=== PATIENT | female | born 1960 | race Caucasian/White ===

== ENCOUNTER 2017-11-04 17:26 | Emergency (ER) | payer BC ==
[2017-11-04] MEDS ORDERED: 0.9 % SODIUM CHLORIDE 1,000 ML BAG IV ONE (17:59)
--- NOTE | 2017-11-04 18:04 | Emergency Department Record ---
History of Present Illness - General Chief Complaint: Hypertension Stated Complaint: HIGH BLOOD PRESSURE/ELEV HEARTRATE Time Seen by Provider: 11/04/17 17:58 Source: Patient Mode of Arrival: Ambulatory Limitations: No limitations - History of Present Illness Initial Comments: 57 yo female presents with a feeling of heart palpitations and elevated blood pressure. This [place] the [place] The onset was 3 hours ago. She was sitting in the dressing room with her daughter. She felt her heart rate "rev" up. No chest pain or syncope. She reports she has had this before and saw a benzene still utility operator for tachycardia/palpitations. The first episode was many years ago and occurs about one or twice a year. She had been on medication many years ago. She has not taken medication for many years or seen a benzene still utility operator. She is unsure of the name of her original diagnosis. No other recent changes in her health. Normally HR is 60 per the patient. EMS BP was 190/. MD Complaint: Lightheadedness, Other Onset/Timin -: Hour(s) Timing: Unsure Description: Other History of Same: Yes History of Trauma: No Severity: Mild Improves With: Nothing Worsens With: Nothing - [place] Coma Scale Eye Response: (4) Open spontaneously Motor Response: (6) Obeys commands Verbal Response: (5) Oriented [place] Total: 15 - Related Data Home Medications Medication Instructions Recorded Confirmed Last Taken No Home Med [NO HOME MEDS] 11/04/17 11/04/17 Unknown Allergies Allergy/AdvReac Type Severity Reaction Status Date / Time codeine Allergy VOMITING Verified 11/04/17 17:34 Travel Screening - Travel/Exposure Within Last 30 Days Have you traveled within the last 30 days?: No - Travel/Exposure Within Last Year Have you traveled outside the [place] in the last year?: No - Additonal Travel Details Have you been exposed to anyone with a communicable illness?: No - Travel Symptoms Symptom Screening: None Review of Systems Constitutional: Denies: Chills, Fever, Malaise, Weakness Eyes: Denies: Eye discharge, Eye pain, Photophobia, Vision change ENT: Denies: Congestion, Ear pain, Epistaxis Respiratory: Denies: Cough, Dyspnea, Hemoptysis, Wheezes Cardiovascular: Reports: Palpitations. Denies: Chest pain, Dyspnea on exertion , Edema Endocrine: Denies: Fatigue, Polydipsia, Polyuria Gastrointestinal: Denies: Diarrhea, Nausea, Vomiting Genitourinary: Denies: Dysuria, Urgency Musculoskeletal: Denies: Arthralgia, Back pain, Joint swelling, Myalgia Skin: Denies: Change in color, Rash Neurological: Denies: Confusion, Headache, Numbness, Paresthesias, Vertigo, Weakness Psychiatric: Reports: Anxiety Hematological/Lymphatic: Denies: Blood Clots, Easy bleeding, Easy bruising Past Medical History - SOCIAL HISTORY Smoking Status: Never smoker Alcohol Use: Rare Drug Use: None - RESPIRATORY Hx Respiratory Disorders: No - CARDIOVASCULAR Hx Cardio Disorders: Yes Hx Hypertension: Yes - NEURO Hx Neuro Disorders: No - GI Hx GI Disorders: No - Hx Genitourinary Disorders: No - ENDOCRINE Hx Endocrine Disorders: No - MUSCULOSKELETAL Hx Musculoskeletal Disorders: No - PSYCH Hx Psych Problems: No - HEMATOLOGY/ONCOLOGY Hx Hematology/Oncology Disorders: No Family Medical History Any Significant Family History?: Yes Hx Heart Disease: Father, Brother/Sister Physical Exam - General General Appearance: Alert, Oriented x3, Cooperative, No acute distress Limitations: No limitations - Head Head exam: Atraumatic, Normal inspection - Eye Eye exam: Normal appearance, PERRL. negative: Conjunctival injection, Scleral icterus - ENT ENT exam: Normal exam, Mucous membranes moist Ear exam: Normal external inspection Nasal Exam: Normal inspection Mouth exam: Normal external inspection Teeth exam: Normal inspection Throat exam: Normal inspection - Neck Neck exam: Normal inspection, Full ROM. negative: Tenderness - Respiratory Respiratory exam: Normal lung sounds bilaterally. negative: Respiratory distress - Cardiovascular Cardiovascular Exam: Normal rhythm, Normal heart sounds, Tachycardia. negative : Diastolic murmur, Systolic murmur Peripheral Pulses: 2+: Radial (R), Radial (L) - GI/Abdominal GI/Abdominal exam: Soft - Rectal Rectal exam: Deferred - exam: Deferred - Extremities Extremities exam: Normal inspection, Full ROM, Normal capillary refill. negative: Tenderness - Back Back exam: Reports: Normal inspection, Full ROM. Denies: Muscle spasm, Rash noted, Tenderness - Neurological Neurological exam: Alert, Normal gait, Oriented X3 - Psychiatric Psychiatric exam: Normal affect, Normal mood - Skin Skin exam: Dry, Intact, Normal color, Warm Course Vital Signs 11/04/17 17:35 Temperature 98.2 F Pulse Rate 111 H Respiratory 20 Rate Blood Pressure 163/80 Pulse Ox 98 - Reevaluation(s) Reevaluation #1: EKG Sinus tach at 115, axis L, intervals normal, ST no acute changes,rsr'. EKG 11/28/12 similar with sinus tach same rsr'. Rate was 112. 11/04/17 18:03 11/04/17 19:35 The CBC and CMP were reviewed No acute changes The TSH is 6.6 The patient was informed to have this recheck through her PCP 11/04/17 20:05 The D-dimer is elevated Given her tachycardia CTA ordered as well. 11/04/17 20:05 The Troponin is negative 11/04/17 22:12 Waiting for repeat troponin and CT HR 99 sinus on monitor 11/04/17 22:19 The repeat troponin is normal The CTA is pending 11/04/17 22:40 The CTA was read as a single non occlusive filling defect of the Left posterior basilar segmental artery a small non occlusive embolis is not excluded. Small amount of artifact can not be excluded. 11/04/17 22:50 I explained the results with the patient. Given tachycardia, HTN, possible single PE recommend transfer for further work up for cardiology and possibly dopplers to rule out DVT. These services are not available at [facility] on the weekend. I recommended Lovenox until further work up performed. I contacted [facility] for possible transfer as this is the hospital of choice for the pain. 11/04/17 22:59 11/04/17 23:[address] Barillas. He accepts the patient as a direct admit. Medical Decision Making - Lab Data Result diagrams: 11/04/17 18:00 11/04/17 18:00 Disposition Disposition: Transfer Clinical Impression: Palpitations, Pulmonary emboli Disposition: Acute Care Hospital Transfer Transfer To: Critical Access Hospital Reason For Transfer: Tachycardia, Possible PE Accepting Physician: Nargis Time Discussed w/Accepting Physician: 22:52 Condition: (2) Stable Additional Instructions: You will need your TSH (thyroid test) rechecked with your family doctor in the office. Today's is 6.6. Forms: Patient Portal Access Time of Disposition: 22:52 Quality - Quality Measures Quality Measures: N/A - Blood Pressure Screening Does Patient Have Any of the Following: Active Dx of HTN Blood Pressure Classification: Pre-Hypertensive BP Reading Systolic Measurement: 163 Diastolic Measurement: 80 Screening for High Blood Pressure: Patient Exclusion, Hx of HTN [R0090]
[2017-11-04 18:13] LABS: BASO % 0.2 % (0-6); EOS % 0.6 % (0-6); GRAN % 78.2 % (47-80); HEMATOCRIT 44.3 % (35.0-47.0); HEMOGLOBIN 14.7 gm/dl (11.6-16.0); LYMPH % 15.6 % (16-45); MEAN CELL VOLUME 87.2 fl (81-97); MEAN CORPUSCULAR HEMOGLOBIN 28.9 pg (27-33); MEAN CORPUSCULAR HGB CONC 33.2 g/dl (32-36); MEAN PLATELET VOLUME 9.3 fl (7.4-10.4); MONO % 5.4 % (0-9); PLATELET COUNT 305 K/uL (130-400); RED BLOOD COUNT 5.08 M/uL (3.80-5.40); WHITE BLOOD COUNT W/O DIFF 12.3 K/uL (4.2-12.2)
[2017-11-04 18:32] LABS: BLOOD UREA NITROGEN 15 mg/dL (6-20)
[2017-11-04 18:33] LABS: CREATININE 0.7 mg/dL (0.5-0.9); EST GLOMERULAR FILTRATION RATE > 60 mL/min; GLUCOSE,RANDOM 114 mg/dL (74-109)
[2017-11-04 18:46] LABS: THYROID STIMULATING HORMONE 6.44 uIU/mL (0.270-4.20)
[2017-11-04] MEDS ORDERED: ENOXAPARIN 100 MG/ML SYR SQ ONE (22:50)
[2017-11-05] MEDS ORDERED: ONDANSETRON HCL IV 4 MG/2 ML VIAL IVP ONE (01:01)
--- NOTE | 2017-11-06 09:49 | CT ANGIOGRAM REPORT ---
EXAM: CT ANGIOGRAM OF THE CHEST FOR PULMONARY EMBOLUS HISTORY: TACHYCARDIA. ELEVATED D-DIMER. TECHNIQUE: Routine CT angiogram of the chest was performed utilizing a pulmonary embolus protocol with 100 ml of Omnipaque 350 utilized. Coronal and sagittal maximum intensity projection reformatted images are generated and reviewed. Comparison: Two view chest radiographic examination dated 05/20/13. FINDINGS: Opacification of the pulmonary arteries is satisfactory for interpretation though evaluation of the segmental arteries at several levels is mildly limited by respiratory motion artifact. No luminal filling defect is noted in the outflow tract, main arteries, nor lobar arteries. There is a questionable nonocclusive filling defect within the proximal posterior basal segmental artery of the left lower lobe with small embolus not excluded. No other luminal filling defect in the segmental arteries that are unaffected by respiratory motion. The heart is not enlarged. The thoracic aorta is mildly atherosclerotic, but without focal aneurysmal dilatation nor dissection. No mediastinal nor hilar mass/lymphadenopathy is seen. Minor dependent atelectasis in each lung base. There is questionable minor bronchial wall thickening in the lower lungs with mild bronchitis not excluded. No lung consolidation nor suspicious lung nodule. No pleural or pericardial effusion. There is a small sliding type hiatal hernia. The wall of the intrathoracic portion of the stomach is not optimally evaluated due to incomplete distention. The adrenal glands are not enlarged. The gallbladder is unremarkable. There is a well circumscribed hypodense lesion within the high left liver lobe measuring 11 x 8 mm. This was visualized on a prior CT abdomen examination dated 05/14/12 on which it measures 8 x 6 mm. Given its relative stability, a cyst or hemangioma are the likely etiologies. No lytic or blastic bone lesion. Mild degenerative changes scattered within the visualized spine. IMPRESSION: 1. THERE IS AN APPARENT NONOCCLUSIVE LUMINAL FILLING DEFECT WITHIN THE PROXIMAL POSTERIOR BASAL SEGMENTAL ARTERY OF THE LEFT LOWER LOBE. WHILE THIS COULD RELATE TO MINOR MOTION ARTIFACT, A SMALL EMBOLUS CANNOT BE EXCLUDED. OTHERWISE, NO EVIDENCE OF ACUTE PULMONARY EMBOLIC DISEASE. 2. MILD DEPENDENT ATELECTASIS IN EACH LUNG BASE. MINIMAL BRONCHIAL WALL THICKENING IN THE LOWER LUNGS MOST PRONOUNCED IN THE CENTRAL RIGHT LOWER LOBE. THIS MAY RELATE TO MILD BRONCHITIS. 3. SMALL HIATAL HERNIA. 4. SMALL HYPODENSE MASS IN THE HIGH LEFT LIVER LOBE ONLY MINIMALLY ENLARGED SINCE A 05/14/12 EXAMINATION. A CYST OR HEMANGIOMA IS THE MOST LIKELY ETIOLOGY. JOB NUMBER: [id number] AND [id number] [facility]
== END 2017-11-05 01:07 | disposition short-term general hospital (02) ==
LOC: ER 17:26
DX: R00.2 Palpitations (principal); I26.99 Other pulmonary embolism without acute cor pulmonale; I10 Essential (primary) hypertension; R79.89 Other specified abnormal findings of blood chemistry; R42 Dizziness and giddiness
CPT/HCPCS: 99285 ×2; 96374; 96372; 85025; 80048; 84443; 84484; 85379; 71275; 93005; 93010; Q9967; J2405; J1650; J7030

== ENCOUNTER 2018-07-29 08:16 | Emergency (ER) | payer BC ==
[2018-07-29] MEDS ORDERED: ASPIRIN 81 MG CHEWABLE TABLET PO ONE (08:22)
--- NOTE | 2018-07-29 08:24 | Emergency Department Record ---
History of Present Illness - General Chief Complaint: Chest Pain Stated Complaint: CHEST DISCOMFORT Time Seen by Provider: 07/29/18 08:22 Source: Patient, RN notes reviewed - History of Present Illness Initial Comments: chest pain pressure sensation and this started yesterday when carrying catrina boxes and she had a stress test in February 2018 through [place] [facility] which was negative. She has a small amount of chest pressure 1/10 now and she has a PMH of tachycardia, also has history of elevated d dimer and her work up was negative for PE. patient's pain is reproducible with palpation on her ribs. No sweating or nausea.PMH hypertension. Patient states no leg pains and no dyspnea - Related Data Home Medications Medication Instructions Recorded Confirmed Last Taken Amlodipine Besylate [Norvasc] 5 mg PO DAILY 07/29/18 07/29/18 07/28/18 Previous Rx's Medication Instructions Recorded Naproxen [Naprosyn] 500 mg PO BID #20 tablet 07/29/18 Allergies Allergy/AdvReac Type Severity Reaction Status Date / Time codeine Allergy VOMITING Verified 07/29/18 08:19 Review of Systems Reviewed: No additional complaints except as noted below Constitutional: Reports: As per HPI. Denies: Chills, Fever, Malaise, Night sweats, Weakness, Weight change Eyes: Reports: As per HPI. Denies: Eye discharge, Eye pain, Photophobia, Vision change ENT: Reports: As per HPI. Denies: Congestion, Dental pain, Ear pain, Epistaxis , Hearing loss, Throat pain Respiratory: Reports: As per HPI. Denies: Cough, Dyspnea, Hemoptysis, Stridor, Wheezes Cardiovascular: Reports: As per HPI, Chest pain. Denies: Arrhythmia, Dyspnea on exertion, Edema, Murmurs, Orthopnea, Palpitations, Paroxysmal nocturnal dyspnea, Rheumatic Fever, Syncope Endocrine: Reports: As per HPI. Denies: Fatigue, Heat or cold intolerance, Polydipsia, Polyuria Gastrointestinal: Reports: As per HPI. Denies: Abdominal pain, Constipation, Diarrhea, Hematemesis, Hematochezia, Melena, Nausea, Vomiting Genitourinary: Reports: As per HPI. Denies: Abnormal menses, Discharge, Dyspareunia, Dysuria, Frequency, Hematuria, Incontinence, Retention, Urgency Musculoskeletal: Reports: As per HPI. Denies: Arthralgia, Back pain, Gout, Joint swelling, Myalgia, Neck pain Skin: Reports: As per HPI. Denies: Bruising, Change in color, Change in hair/ nails, Lesions, Pruritus, Rash Neurological: Reports: As per HPI. Denies: Abnormal gait, Confusion, Headache, Numbness, Paresthesias, Seizure, Tingling, Tremors, Vertigo, Weakness Psychiatric: Reports: As per HPI. Denies: Anxiety, Auditory hallucinations, Depression, Homicidal thoughts, Suicidal thoughts, Visual hallucinations Hematological/Lymphatic: Reports: As per HPI. Denies: Anemia, Blood Clots, Easy bleeding, Easy bruising, Swollen glands Past Medical History - SOCIAL HISTORY Smoking Status: Never smoker Drug Use: None - RESPIRATORY Hx Respiratory Disorders: No - CARDIOVASCULAR Hx Cardio Disorders: Yes Hx Hypertension: Yes - NEURO Hx Neuro Disorders: No - GI Hx GI Disorders: No - Hx Genitourinary Disorders: No - ENDOCRINE Hx Endocrine Disorders: No - MUSCULOSKELETAL Hx Musculoskeletal Disorders: No - PSYCH Hx Psych Problems: No - HEMATOLOGY/ONCOLOGY Hx Hematology/Oncology Disorders: No Family Medical History Hx Heart Disease: Father, Brother/Sister Physical Exam - General General Appearance: Alert, Oriented x3, Cooperative, No acute distress - Head Head exam: Normal inspection - Eye Eye exam: Normal appearance, PERRL Pupils: Normal accommodation - ENT ENT exam: Normal exam, Mucous membranes moist, Normal external ear exam, Normal orophraynx, TM's normal bilaterally Ear exam: Normal external inspection. negative: External canal tenderness Nasal Exam: Normal inspection. negative: Discharge, Sinus tenderness Mouth exam: Normal external inspection, Tongue normal Teeth exam: Normal inspection. negative: Dental caries Throat exam: Normal inspection. negative: Tonsillar erythema, Tonsillar exudate - Neck Neck exam: Normal inspection, Full ROM. negative: Tenderness - Respiratory Respiratory exam: Normal lung sounds bilaterally. negative: Respiratory distress - Cardiovascular Cardiovascular Exam: Regular rate, Normal rhythm, Normal heart sounds - GI/Abdominal GI/Abdominal exam: Soft, Normal bowel sounds. negative: Tenderness - Rectal Rectal exam: Deferred - exam: Deferred - Extremities Extremities exam: Normal inspection, Full ROM, Normal capillary refill. negative: Tenderness - Back Back exam: Reports: Normal inspection, Full ROM. Denies: Muscle spasm, Rash noted, Tenderness - Neurological Neurological exam: Alert, Normal gait, Oriented X3, Reflexes normal - Psychiatric Psychiatric exam: Normal affect, Normal mood - Skin Skin exam: Dry, Intact, Normal color, Warm Course - Reevaluation(s) Reevaluation #1: patient developed headache after nitro and BP dropped and she feels better with chest pain but it hurts to palpate on her chest. 07/29/18 09:30 Medical Decision Making - Data Complexity MDM Data: Labs Ordered and/or Reviewed, X-Ray Ordered and/or Reviewed (chest xray neg), EKG Ordered and/or Reviewed (No acute changes,nsr, rate 87) - Lab Data Result diagrams: 07/29/18 08:30 07/29/18 08:30 Disposition Clinical Impression: Chest wall pain Chest pain Qualifiers: Chest pain type: unspecified Qualified Code(s): R07.9 - Chest pain, unspecified Disposition: Home, Self-Care Condition: (1) Good Instructions: Costochondritis (ED) Additional Instructions: follow up with family Dr in 3 days and ame an appointment to see your pan dumper for another stress test. Prescriptions: Naproxen [Naprosyn] 500 mg PO BID #20 tablet Forms: Patient Portal Access Time of Disposition: 10:56 Quality - Quality Measures Quality Measures: N/A - Blood Pressure Screening Does Patient Have Any of the Following: No Blood Pressure Classification: Pre-Hypertensive BP Reading Systolic Measurement: 179 Diastolic Measurement: 87 Screening for High Blood Pressure: < Pre-Hypertensive BP, F/U Documented > [ [id number]] Pre-Hypertensive Follow-up Interventions: Referral to alternative/primary care provider.
[2018-07-29 08:40] LABS: BASO % 0.2 % (0-6); EOS % 1.9 % (0-6); HEMATOCRIT 47.6 % (35.0-47.0); HEMOGLOBIN 15.7 gm/dl (11.6-16.0); LYMPH % 26.8 % (16-45); MEAN CELL VOLUME 85.9 fl (81-97); MEAN CORPUSCULAR HEMOGLOBIN 28.3 pg (27-33); MEAN PLATELET VOLUME 9.3 fl (7.4-10.4); MONO % 5.1 % (0-9); PLATELET COUNT 304 K/uL (130-400); RED BLOOD COUNT 5.54 M/uL (3.80-5.40); RED CELL DISTRIBUTION WIDTH 13.7 % (11.5-14.5)
[2018-07-29] MEDS: NITROGLYCERIN 0.4MG SL TABLET #25 BTL SL PRN ×2 (08:43→09:00)
[2018-07-29 08:52] LABS: BLOOD UREA NITROGEN 13 mg/dL (6-20); CREATININE 0.7 mg/dL (0.5-0.9); EST GLOMERULAR FILTRATION RATE > 60 mL/min
[2018-07-29 08:55] LABS: GLUCOSE,RANDOM 111 mg/dL (74-109)
--- NOTE | 2018-07-30 08:29 | RADIOLOGY REPORT ---
EXAM: CHEST, TWO VIEWS HISTORY: DIFFICULTY BREATHING. TECHNIQUE: Frontal and lateral views of the chest were performed. Comparison: 05/20/13. FINDINGS: The heart size is normal. The lung dolan are clear. No infiltrate or pleural effusion. The osseous structures are normal. IMPRESSION: NO ACUTE DISEASE PROCESS. JOB NUMBER: [id number] [facility]
== END 2018-07-29 11:09 | disposition home or self-care (01) ==
LOC: ER 08:16
DX: R07.89 Other chest pain (principal); R06.00 Dyspnea, unspecified; I10 Essential (primary) hypertension
CPT/HCPCS: 71046; 80048; 84484; 85025; 85730; 93005; 93010; 99284